=== PATIENT | female | born 1985 | race Caucasian/White ===

== ENCOUNTER → 2016-04-08 | Outpatient (CLI) | payer OTHER ==
--- NOTE | 2016-04-08 15:10 | US ---
April 08, [address] David, Thank you for allowing us to see your patient regarding first trimeter screening options. As you kno brandon she is a 31 year-old 1, para 0. Her due date is 10/11/16 which is based on LMP. Her curren t gestational age based on this dating is 13 weeks 3 days. Number of fetuses: 1 Placental location: posterior Cord Insertion: Central presentation: variable Cervix: suboptimal MVP: subjectively normal The adnexa were evaluated. No pathology was seen. Right ovary normal Left ovary normal Measurements: Biparietal diameter: 28 mm 15 weeks, 0 days Head circumference: 102 mm 14 weeks, 6 days Abdominal circumference: 90 mm 15 weeks, 2 days Femur length: 13 mm 14 weeks, 0 days Humerus length: 15 mm 14 weeks, 1 days Transcerebellar diameter: 14 mm 15 weeks, 2 days Average ultrasound age: 14 weeks, 6 days Estimated weight: 101 gm weight percentile: 97 % ANATOMY Upper extremities: Seen but limited Lower extremities: Seen bit limited Supratentorial brain: Suboptimal CP Lateral ventricle: 4.3 mm Posterior fossa: Normal Cisterna Magna: 1.8 mm Spine: Suboptimal Nuchal fold: 2.9 Face: Suboptimal Heart: Normal heart rate rhythm and axis. heart rate 161 bpm. Remainder of cardiac views suboptimal secondary to gestational age Stomach: Normal Diaphragm: Suboptimal Umbilical cord insertion: Normal Right kidney: Normal Left kidney: Normal Bladder: Normal Number of cord vessels: Three. Impression: This is a 31 year-old 1, para 0 at 14 weeks, 6 days gestation. 1. SIUP with biometry NOT consistent with reported gestational age. GIven 10 day discrepancy, recomme nd changing ANYA to 10/01/16. 2. Aneuploidy screening- we discussed that sequential screen is not an option at this crown r[place] dolly th. We reviewed options for quad screen after 15 weeks or NIPT ordered today. We reviewed testing par ameters and costs of both. She opted to return to you as scheduled next week and will likely complet e a quad screen through your office. Thank you for allowing me to see your patient. Approximately 15 minutes was spent with the patient a nd 10 was spent discussing her issues. Maricarmen Cheung MD Diagnosis Division of Maternal Medicine Department of Obstetrics and Gynecology [facility]
--- NOTE | 2016-04-09 18:07 | US ---
Complete Obstetric Ultrasound April 09, 2016 at 1404 hours Indication: 1, para 0, 31-year-old female. Evaluate size and dates. The estimated gestati onal age by LMP is 13 weeks and 3 days yielding an EDC of October 11, 2016. Comparison: None relevant. Findings Number: 1. Presentation: Variable. Placental location: Posterior. Cervix: Poorly visualized today. Maximum vertical pocket: Normal. heart rate: 161 bpm. Biometry: Biparietal diameter: 27.9 mm = 15 weeks, and 0 days. Head circumference: 102 mm = 14 weeks, and 6 days. Abdominal circumference: 89 mm = 15 weeks, and 2 days. Femur length: 13 mm = 14 weeks, and 0 days. Humerus length: 14 mm = 14 weeks, and 1 day. Transcerebellar diameter: 14 mm = 15 weeks, and 2 days. HC/AC: 1.14 (1.14 - 1.31). FL/BPD: 48%. FL/AC: 15%. Average ultrasound age: 14 weeks, and 6 days. EDC based on today's average ultrasound age: October 01, 2016. Estimated weight is 101 grams, +/- 15 grams. The estimated weight is at the 97th percent ile based on previous dating. Anatomy Survey: Supratentorial brain: Normal. Posterior fossa: Normal. Spine: Limited. Nuchal fold: Normal, 2.9 mm. Nose and lips: Limited. Facial profile: Limited. Heart: Four-chamber heart. Intact interventricular septum. Cardiac outflow tracts: Limited. Stomach: Normal. Umbilical cord insertion: Normal. Kidneys: Normal, no pyelectasis. Bladder: Normal. Number of cord vessels: Three. Upper extremities: Normal. Lower extremities: Normal. Impressions 1. Living castillo in vertex presentation. Discrepancy between the LMP and the average a ge by ultrasound. The estimated gestational age by biometry is 14 weeks and 6 days yielding an EDC of October 01, 2016. The estimated gestational age by LMP is 13 weeks and 3 days . 2. Unremarkable anatomy. No anomalies detected. Consider full anatomic survey at 20-22 weeks .
== END ==
LOC: FIMAGING 13:46
PROVIDERS: ATTEND Obstetrics & Gynecology
DX: Z34.02 Encounter for supervision of normal first pregnancy, second trimester (principal); Z3A.13 13 weeks gestation of pregnancy